=== PATIENT | female | born 1995 | race Caucasian/White ===

== ENCOUNTER 2020-06-16 15:37 | Emergency (ER) | payer OTHER ==
[~2020-06-16] VITALS: Ht 165.1 cm; Wt 58.5 kg
[2020-06-16] MEDS ORDERED: SYNTHROID100 MCG (15:49)
== END 2020-06-16 18:05 | disposition home or self-care (01) ==
LOC: ER 15:37
DX: O20.0 Threatened abortion (principal)

== ENCOUNTER 2020-11-28 19:12 | Outpatient (CLI) | payer OTHER ==
[~2020-11-28 19:12] MED LIST: SYNTHROID100 MCG
[2020-11-29] MEDS ORDERED: SYNTHROID200 MCG PO (06:09)
[2020-11-29] MEDS ORDERED: PRENATAL TABLE1 EAC1 PO (06:09)
== END 2020-11-28 19:35 | disposition home or self-care (01) ==
LOC: NST 19:12
PROVIDERS: ATTEND Specialist
DX: Z34.83 Encounter for supervision of other normal pregnancy, third trimester (principal)

== ENCOUNTER 2020-11-29 01:54 | Inpatient (IN) | payer OTHER ==
[~2020-11-29] VITALS: Ht 165.1 cm; Wt 69.9 kg
[2020-11-29] MEDS ORDERED: PRENATAL TABLE1 EAC1 PO (06:09)
[2020-11-29] MEDS ORDERED: SYNTHROID200 MCG PO (06:09)
== END 2020-12-01 17:18 | disposition home or self-care (01) | DRG 807 ==
LOC: OB/GYN 01:54 → LDR 01:54 → OB/GYN 04:17
PROVIDERS: ADMIT Specialist; ATTEND Specialist
PROC: 10E0XZZ Delivery of Products of Conception, External Approach (ICD-10-PCS; principal; 2020-11-29)
PROC: 0W8NXZZ Division of Female Perineum, External Approach (ICD-10-PCS; 2020-11-29)
PROC: 10907ZC Drainage of Amniotic Fluid, Therapeutic from Products of Conception, Via Natural or Artificial Opening (ICD-10-PCS; 2020-11-29)
PROC: 4A1HXFZ Monitoring of Products of Conception, Cardiac Rhythm, External Approach (ICD-10-PCS; 2020-11-29)
DX: O60.14X0 Preterm labor third trimester with preterm delivery third trimester, not applicable or unspecified (principal); Z37.0 Single live birth; Z3A.35 35 weeks gestation of pregnancy; Z20.822 Contact with and (suspected) exposure to COVID-19